=== PATIENT | male | born 1945 | race African-American/Black ===

== ENCOUNTER 2017-05-30 08:55 | Emergency (ER) | payer MEDICARE, MEDICAID ==
[~2017-05-30] VITALS: Ht 165.1 cm; Wt 69.0 kg
[2017-05-30 12:29] LABS: BASOPHILS % 0.6 % (0.0-2.0); EOSINOPHILS % 1.3 % (0.0-5.0); HEMATOCRIT. 37.2 % (42.0-52.0); HEMOGLOBIN. 12.2 g/dL (14.0-18.0); LYMPHOCYTES % 22.6 % (20.0-50.0); MEAN CORPUSCULAR HEMOGLOBIN 25.8 pg (28.0-32.0); MEAN CORPUSCULAR VOLUME 78.8 fL (80.0-94.0); MEAN PLATELET VOLUME 7.8 fl (7.4-10.4); MONOCYTES % 13.7 % (2.0-8.0); NEUTROPHILS % 61.8 % (40.0-76.0); PLATELET 335 x1000/uL (130-400); RED BLOOD CELL COUNT 4.72 mill/uL (4.7-6.1); RED CELL DISTRIBUTION WIDTH 15.1 % (11.6-14.6)
[2017-05-30 12:33] LABS: PROTHROMBIN TIME 10.8 sec (9.4-11.6)
[2017-05-30 12:39] LABS: CHLORIDE 103 mEq/L (98-107)
[2017-05-30 14:32] VITALS: BP 126/73
== END 2017-05-30 14:30 | disposition home or self-care (01) ==
LOC: ER 08:55
DX: R14.0 Abdominal distension (gaseous) (principal); R10.9 Unspecified abdominal pain; E78.00 Pure hypercholesterolemia, unspecified
CPT/HCPCS: 36415; 74021; 80053; 83690; 85025; 85610; 99285

== ENCOUNTER 2018-03-30 16:27 | Emergency (ER) | payer MEDICARE, MEDICAID ==
[~2018-03-30] VITALS: Ht 165.1 cm; Wt 70.0 kg
[2018-03-30] MEDS ORDERED: GABA-529 MT (16:46)
[2018-03-30] MEDS ORDERED: LISI-186 MT (16:46)
[2018-03-30] MEDS ORDERED: SIMV40TA5 MT (16:46)
[2018-03-30] MEDS ORDERED: FERR325T6 MT (16:46)
[2018-03-30] MEDS ORDERED: ASPI-1159 MT (16:46)
[2018-03-30] MEDS ORDERED: METF-414 MT (16:46)
[2018-03-30 19:24] VITALS: BP 120/66
== END 2018-03-31 01:00 | disposition home or self-care (01) ==
LOC: ER 16:45
DX: M25.511 Pain in right shoulder (principal); M25.562 Pain in left knee; E11.9 Type 2 diabetes mellitus without complications; Z98.890 Other specified postprocedural states; Z79.82 Long term (current) use of aspirin; Z79.899 Other long term (current) drug therapy
CPT/HCPCS: 73030; 99283

== ENCOUNTER 2018-10-16 00:05 | Emergency (ER) | payer MEDICARE, MEDICAID ==
[~2018-10-16] VITALS: Ht 165.1 cm; Wt 57.0 kg
[~2018-10-16 00:05] MED LIST: ASPI-1393 MT; FERR325T6 MT; GABA-529 MT; LISI-186 MT; METF-414 MT; SIMV40TA5 MT
[2018-10-16] MEDS ORDERED: BACITRACIN ZINC OINT UDPKT TOP ONE (05:15)
[2018-10-16] MEDS ORDERED: TETANUS, DIPHTHERIA, PERTUSSIS VAC/PF 0.5ML (>7YR OLD) IM ONE (05:15)
[2018-10-16] MEDS ORDERED: LIDOCAINE HCL/PF 1% 10 MG/ML 5ML VIAL IJ ONE (05:15)
[2018-10-16] MEDS ORDERED: CEFAZOLIN 1000MG PREMIX 50 ML IV ONE (06:00)
[2018-10-16 06:59] VITALS: BP 138/74
== END 2018-10-16 06:59 | disposition home or self-care (01) ==
LOC: ER 00:05
DX: S62.525A Nondisplaced fracture of distal phalanx of left thumb, initial encounter for closed fracture (principal); S61.011A Laceration without foreign body of right thumb without damage to nail, initial encounter; E11.9 Type 2 diabetes mellitus without complications; I10 Essential (primary) hypertension; Z98.61 Coronary angioplasty status; Z79.82 Long term (current) use of aspirin; Z79.84 Long term (current) use of oral hypoglycemic drugs; W45.8XXA Other foreign body or object entering through skin, initial encounter; Y93.89 Activity, other specified; Y92.018 Other place in single-family (private) house as the place of occurrence of the external cause
CPT/HCPCS: 12001; 73140; 90471; 90715; 96365; 99283; J0690; J3490

== ENCOUNTER 2018-10-22 19:41 | Emergency (ER) | payer MEDICARE, MEDICAID ==
[~2018-10-22] VITALS: Ht 165.1 cm; Wt 72.0 kg
[2018-10-22 21:00] VITALS: BP 147/86
== END 2018-10-22 22:27 | disposition home or self-care (01) ==
LOC: ER 19:41
DX: S61.012D Laceration without foreign body of left thumb without damage to nail, subsequent encounter (principal); E11.9 Type 2 diabetes mellitus without complications; I10 Essential (primary) hypertension; Z79.899 Other long term (current) drug therapy; Z79.82 Long term (current) use of aspirin; Z98.61 Coronary angioplasty status; X58.XXXD Exposure to other specified factors, subsequent encounter
CPT/HCPCS: 99283

== ENCOUNTER 2019-08-27 00:11 | Emergency (ER) | payer MEDICARE, MEDICAID ==
[~2019-08-27] VITALS: Ht 165.1 cm; Wt 75.0 kg
[~2019-08-27 00:11] MED LIST changes: -ASPI-1393 MT; +ASPI-1497 MT; +SIMV-46 MT; -SIMV40TA5 MT
[2019-08-27 00:17] VITALS: BP 150/79
== END 2019-08-27 01:06 | disposition home or self-care (01) ==
LOC: ER 00:11
DX: R06.02 Shortness of breath (principal); I10 Essential (primary) hypertension; E11.9 Type 2 diabetes mellitus without complications; Z98.61 Coronary angioplasty status; Z79.84 Long term (current) use of oral hypoglycemic drugs; Z79.82 Long term (current) use of aspirin
CPT/HCPCS: 99281

== ENCOUNTER 2021-03-20 21:41 | Emergency (ER) | payer MEDICARE, MEDICAID ==
[~2021-03-20] VITALS: Ht 165.1 cm; Wt 70.3 kg
[2021-03-21] MEDS ORDERED: AMLO5TAB88 MT (02:29)
[2021-03-21] MEDS ORDERED: AMLODIPINE 5MG TABLET PO ONE (02:30)
[2021-03-21 03:30] VITALS: BP 132/74
== END 2021-03-21 03:50 | disposition home or self-care (01) ==
LOC: ER 21:41
DX: I10 Essential (primary) hypertension (principal); E78.00 Pure hypercholesterolemia, unspecified; K21.9 Gastro-esophageal reflux disease without esophagitis; E11.9 Type 2 diabetes mellitus without complications; Z79.82 Long term (current) use of aspirin; Z79.84 Long term (current) use of oral hypoglycemic drugs
CPT/HCPCS: 93005; 99283

== ENCOUNTER 2021-04-24 16:32 | Emergency (ER) | payer MEDICARE, MEDICAID ==
[~2021-04-24] VITALS: Ht 165.1 cm; Wt 70.0 kg
[~2021-04-24 16:32] MED LIST changes: +AMLO5TAB88 MT
[2021-04-24 16:43] VITALS: BP 146/79
== END 2021-04-24 19:22 | disposition home or self-care (01) ==
LOC: ER 16:32
DX: U07.1 COVID-19 (principal); E11.9 Type 2 diabetes mellitus without complications; I10 Essential (primary) hypertension; E78.00 Pure hypercholesterolemia, unspecified; Z20.822 Contact with and (suspected) exposure to COVID-19
CPT/HCPCS: 87426; 99283

== ENCOUNTER 2021-04-30 12:18 | Emergency (ER) | payer MEDICARE, MEDICAID ==
[~2021-04-30] VITALS: Ht 165.1 cm; Wt 75.0 kg
[2021-04-30] MEDS ORDERED: ASPIRIN 81MG TABLET PO ONE (12:45)
[2021-04-30 14:13] LABS: BASOPHILS % 0.8 % (0.0-2.0); EOSINOPHILS % 0.8 % (0.0-5.0); HEMOGLOBIN. 12.3 g/dL (14.0-18.0); LYMPHOCYTES % 16.9 % (20.0-50.0); MEAN CORPUSCULAR HEMOGLOBIN 26.1 pg (28.0-32.0); MEAN CORPUSCULAR VOLUME 78.6 fL (80.0-94.0); MEAN PLATELET VOLUME 8.5 fl (7.4-10.4); MONOCYTES % 10.5 % (2.0-8.0); PLATELET 315 x1000/uL (130-400); RED CELL DISTRIBUTION WIDTH 14.3 % (11.6-14.6)
[2021-04-30 14:16] LABS: CHLORIDE 105 mEq/L (98-107)
[2021-04-30 17:48] VITALS: BP 123/80
== END 2021-04-30 17:49 | disposition home or self-care (01) ==
LOC: ER 12:18
DX: U07.1 COVID-19 (principal); R07.89 Other chest pain; E11.9 Type 2 diabetes mellitus without complications; I25.10 Atherosclerotic heart disease of native coronary artery without angina pectoris; I10 Essential (primary) hypertension; E78.00 Pure hypercholesterolemia, unspecified; Z95.1 Presence of aortocoronary bypass graft; Z79.84 Long term (current) use of oral hypoglycemic drugs; Z79.82 Long term (current) use of aspirin
CPT/HCPCS: 36415; 71045; 80053; 83690; 83880; 84484; 85025; 99284; C9803; U0003; U0005

== ENCOUNTER 2022-05-24 13:43 | Emergency (ER) | payer MEDICARE, MEDICAID ==
[~2022-05-24] VITALS: Ht 165.1 cm; Wt 71.0 kg
[2022-05-24 13:51] VITALS: BP 152/81
[2022-05-24] MEDS ORDERED: MAGNESIUM/ALUMINUM HYDROXIDE/SIMETHICONE 30ML UDC PO STA (14:55)
[2022-05-24] MEDS ORDERED: ONDANSETRON 4MG ODT PO STA (14:55)
[2022-05-24] MEDS ORDERED: VISCOUS LIDOCAINE 2% 15 ML UDC PO STA (14:55)
[2022-05-24 15:13] LABS: BASOPHILS % 0.8 % (0.0-2.0); HEMATOCRIT. 39.6 % (42.0-52.0); HEMOGLOBIN. 12.8 g/dL (14.0-18.0); LYMPHOCYTES % 22.4 % (20.0-50.0); MEAN CORPUSCULAR HEMOGLOBIN 25.9 pg (28.0-32.0); MEAN PLATELET VOLUME 8.6 fl (7.4-10.4); MONOCYTES % 8.2 % (2.0-8.0); NEUTROPHILS % 67.6 % (40.0-76.0); PLATELET 338 x1000/uL (130-400); RED BLOOD CELL COUNT 4.95 mill/uL (4.7-6.1); RED CELL DISTRIBUTION WIDTH 15.1 % (11.6-14.6)
[2022-05-24 15:20] LABS: PROTHROMBIN TIME 11.2 sec (9.6-11.0)
[2022-05-24 15:23] LABS: CHLORIDE 108 mEq/L (98-107)
[2022-05-24] MEDS ORDERED: MAGNESIUM/ALUMINUM HYDROXIDE/SIMETHICONE 30ML UDC PO SCH (17:30)
[2022-05-24] MEDS ORDERED: ONDANSETRON 4MG ODT PO SCH (17:30)
[2022-05-24] MEDS ORDERED: VISCOUS LIDOCAINE 2% 15 ML UDC PO SCH (17:30)
== END 2022-05-24 19:14 | disposition home or self-care (01) ==
LOC: ER 13:43
DX: K52.9 Noninfective gastroenteritis and colitis, unspecified (principal); R07.89 Other chest pain; E11.9 Type 2 diabetes mellitus without complications; I10 Essential (primary) hypertension; E78.00 Pure hypercholesterolemia, unspecified; I25.10 Atherosclerotic heart disease of native coronary artery without angina pectoris; Z79.82 Long term (current) use of aspirin; Z79.84 Long term (current) use of oral hypoglycemic drugs; Z95.1 Presence of aortocoronary bypass graft
CPT/HCPCS: 36415; 71045; 80053; 83690; 84484; 85025; 85610; 93005; 99285; Q0162

== ENCOUNTER 2022-12-05 05:36 | Emergency (ER) | payer MEDICARE, MEDICAID ==
[~2022-12-05] VITALS: Ht 165.1 cm; Wt 68.1 kg
[~2022-12-05 05:36] MED LIST changes: +AMOX1TAB16 MT; +AZIT250T12 MT
[2022-12-05 05:39] VITALS: BP 143/87; RESP 14; TEMP 98.2; O2SAT 96
[2022-12-05 05:40] VITALS: PULSE 102
== END 2022-12-05 07:50 | disposition left against medical advice (07) ==
LOC: ER 05:43
DX: Z53.21 Procedure and treatment not carried out due to patient leaving prior to being seen by health care provider (principal)
CPT/HCPCS: 99281

== ENCOUNTER 2022-12-10 04:11 | Emergency (ER) | payer MEDICARE, MEDICAID ==
[~2022-12-10] VITALS: Ht 165.1 cm; Wt 72.0 kg
[2022-12-10 04:34] VITALS: O2SAT 97
[2022-12-10 04:56] LABS: BASOPHILS % 0.8 % (0.0-2.0); EOSINOPHILS % 1.6 % (0.0-5.0); HEMATOCRIT. 39.7 % (42.0-52.0); LYMPHOCYTES % 30.1 % (20.0-50.0); MEAN CORPUSCULAR HEMOGLOBIN 26.2 pg (28.0-32.0); MEAN CORPUSCULAR HGB CONC 32.7 g/dL (31.0-37.0); MEAN CORPUSCULAR VOLUME 80.2 fL (80.0-94.0); MEAN PLATELET VOLUME 8.3 fl (7.4-10.4); MONOCYTES % 9.5 % (2.0-8.0); PLATELET 277 x1000/uL (130-400); RED BLOOD CELL COUNT 4.96 mill/uL (4.7-6.1); RED CELL DISTRIBUTION WIDTH 15.2 % (11.6-14.6); WHITE BLOOD COUNT 6.5 x1000/uL (4.5-11.0)
[2022-12-10 05:04] LABS: CHLORIDE 106 mEq/L (98-107); INDEX HEMOLYSI 1 (1-3); INDEX ICTERIC 1 (1-4); INDEX LIPEMIC 1 (1-3); POTASSIUM 4.6 mEq/L (3.5-5.1); SODIUM 134 mEq/L (136-145)
[2022-12-10 05:08] LABS: CLARITY URINE CLEAR (CLEAR); COLOR URINE YELLOW (YELLOW); GLUCOSE URINE NEGATIVE (NEGATIVE); KETONES URINE NEGATIVE (NEGATIVE); LEUKOCYTE ESTERASE URINE NEGATIVE (NEGATIVE); NITRITE URINE NEGATIVE (NEGATIVE); OCCULT BLOOD URINE NEGATIVE (NEGATIVE); PH URINE 5.5 (4.5-8.0); PROTEIN URINE TRACE (NEGATIVE); SPECIFIC GRAVITY URINE 1.011 (1.005-1.030); UROBILINOGEN URINE 0.2 E.U./dL (0.2-1.0)
[2022-12-10 05:08] LABS: PARTIAL THROMBOPLASTIN TIME 28.2 sec (23.4-31.0); PROTHROMBIN TIME 11.2 sec (9.6-11.0)
[2022-12-10 05:13] LABS: ALANINE AMINOTRANSFERASE 22 IU/L (13-61); ALBUMIN 3.8 g/dL (3.4-5.0); ASPARTATE AMINOTRANSFERASE 20 IU/L (15-37); BILIRUBIN TOTAL 0.3 mg/dL (0.1-1.0); CALCIUM 8.8 mg/dL (8.5-10.1); CARBON DIOXIDE 26 mEq/L (21-32); CREATININE 1.1 mg/dL (0.6-1.3); GLUCOSE 136 mg/dL (70-105); PROTEIN TOTAL 7.7 g/dL (6.0-8.3); TROPONIN I HIGH SENSITIVITY 8 ng/L (<78); UREA NITROGEN BLOOD 12 mg/dL (7-21)
[2022-12-10 05:28] LABS: BACTERIA URINE TRACE; RBC URINE NONE SEEN /hpf (0-2); SQUAMOUS EPITHELIAL CELL URINE FEW /lpf (RARE/1+); WBC URINE NONE SEEN /hpf (0-2)
[2022-12-10] MEDS ORDERED: MAGNESIUM/ALUMINUM HYDROXIDE/SIMETHICONE 30ML UDC PO STA (08:34)
[2022-12-10] MEDS ORDERED: FAMOTIDINE 20MG TABLET PO ONE (08:45)
[2022-12-10 12:16] LABS: TROPONIN I HIGH SENSITIVITY 16 ng/L (<78)
[2022-12-10 13:10] VITALS: BP 145/75; PULSE 76; RESP 18; TEMP 97.7
== END 2022-12-10 13:12 | disposition home or self-care (01) ==
LOC: ER 04:11
DX: R07.89 Other chest pain (principal); E78.00 Pure hypercholesterolemia, unspecified; I10 Essential (primary) hypertension; Z79.899 Other long term (current) drug therapy
CPT/HCPCS: 36415; 71045; 80053; 81003; 84484; 85025; 93005; 99285

== ENCOUNTER 2022-12-24 13:05 | Emergency (ER) | payer MEDICARE, MEDICAID ==
[~2022-12-24] VITALS: Ht 165.1 cm; Wt 68.0 kg
[2022-12-24 13:14] VITALS: O2SAT 98
[2022-12-24 13:18] VITALS: BP 128/73
[2022-12-24 14:52] LABS: BASOPHILS % 0.4 % (0.0-2.0); DIFFERENTIAL COMMENT 0; EOSINOPHILS % 1.9 % (0.0-5.0); HEMOGLOBIN. 12.2 g/dL (14.0-18.0); LYMPHOCYTES % 23.2 % (20.0-50.0); MEAN CORPUSCULAR HEMOGLOBIN 25.9 pg (28.0-32.0); MEAN CORPUSCULAR VOLUME 78.6 fL (80.0-94.0); MEAN PLATELET VOLUME 8.6 fl (7.4-10.4); MONOCYTES % 8.7 % (2.0-8.0); NEUTROPHILS % 65.8 % (40.0-76.0); PLATELET 287 x1000/uL (130-400); RED BLOOD CELL COUNT 4.71 mill/uL (4.7-6.1); RED CELL DISTRIBUTION WIDTH 15.1 % (11.6-14.6); WHITE BLOOD COUNT 6.5 x1000/uL (4.5-11.0)
[2022-12-24 15:23] LABS: CHLORIDE 107 mEq/L (98-107); INDEX HEMOLYSI 1 (1-3); INDEX ICTERIC 1 (1-4); INDEX LIPEMIC 1 (1-3); POTASSIUM 4.6 mEq/L (3.5-5.1); SODIUM 137 mEq/L (136-145)
[2022-12-24 15:35] LABS: ALANINE AMINOTRANSFERASE 26 IU/L (13-61); ALBUMIN 3.8 g/dL (3.4-5.0); ASPARTATE AMINOTRANSFERASE 22 IU/L (15-37); BILIRUBIN TOTAL 0.6 mg/dL (0.1-1.0); CALCIUM 8.9 mg/dL (8.5-10.1); CARBON DIOXIDE 28 mEq/L (21-32); CREATININE 1.1 mg/dL (0.6-1.3); GLUCOSE 105 mg/dL (70-105); PROTEIN TOTAL 7.6 g/dL (6.0-8.3); UREA NITROGEN BLOOD 19 mg/dL (7-21)
[2022-12-24 15:37] LABS: TROPONIN I HIGH SENSITIVITY 5 ng/L (<78)
[2022-12-24] MEDS ORDERED: MAGNESIUM/ALUMINUM HYDROXIDE/SIMETHICONE 30ML UDC PO ONE (17:45)
[2022-12-24] MEDS ORDERED: ONDANSETRON 4MG ODT PO ONE (17:45)
[2022-12-24 18:14] LABS: CLARITY URINE CLEAR (CLEAR); COLOR URINE YELLOW (YELLOW); GLUCOSE URINE NEGATIVE (NEGATIVE); KETONES URINE NEGATIVE (NEGATIVE); LEUKOCYTE ESTERASE URINE 1+ (NEGATIVE); NITRITE URINE NEGATIVE (NEGATIVE); OCCULT BLOOD URINE NEGATIVE (NEGATIVE); PH URINE 5.5 (4.5-8.0); PROTEIN URINE NEGATIVE (NEGATIVE); SPECIFIC GRAVITY URINE 1.026 (1.005-1.030); UROBILINOGEN URINE 0.2 E.U./dL (0.2-1.0)
[2022-12-24 18:30] LABS: TROPONIN I HIGH SENSITIVITY 6 ng/L (<78)
[2022-12-24 18:31] LABS: BACTERIA URINE TRACE; SQUAMOUS EPITHELIAL CELL URINE FEW /lpf (RARE/1+)
[2022-12-24 18:32] LABS: RBC URINE NONE SEEN /hpf (0-2)
[2022-12-24] MEDS ORDERED: CIPR-263 MT (19:13)
[2022-12-24] MEDS ORDERED: IBUP-2028 MT (19:13)
[2022-12-24] MEDS ORDERED: ONDANSETRON 4MG ODT PO NR (20:00)
[2022-12-24] MEDS: MAGNESIUM/ALUMINUM HYDROXIDE/SIMETHICONE 30ML UDC PO NR ×2 (20:27→20:28)
[2022-12-24 21:52] VITALS: PULSE 72; RESP 18; TEMP 98.2
== END 2022-12-24 21:53 | disposition home or self-care (01) ==
LOC: ER 13:36
DX: N39.0 Urinary tract infection, site not specified (principal); R10.9 Unspecified abdominal pain; R11.2 Nausea with vomiting, unspecified; E78.00 Pure hypercholesterolemia, unspecified; I10 Essential (primary) hypertension; Z79.899 Other long term (current) drug therapy
CPT/HCPCS: 99285; 71045; 80053; 81003; 83690; 85025; 84484; 36415; 93005; Q0162

== ENCOUNTER 2023-05-18 07:01 | Emergency (ER) | payer MEDICARE, MEDICAID ==
[~2023-05-18] VITALS: Ht 165.1 cm; Wt 69.8 kg
[~2023-05-18 07:01] MED LIST changes: +CIPR-263 MT; +IBUP-2028 MT
[2023-05-18 07:25] VITALS: BP 132/75; PULSE 69; RESP 16; TEMP 98.3; O2SAT 98
[2023-05-18] MEDS ORDERED: GUAI5LIQ13 PO (09:43)
== END 2023-05-18 09:51 | disposition home or self-care (01) ==
LOC: ER 07:01
DX: B34.9 Viral infection, unspecified (principal); I10 Essential (primary) hypertension; E78.00 Pure hypercholesterolemia, unspecified; Z79.82 Long term (current) use of aspirin
CPT/HCPCS: 71045; 99283

== ENCOUNTER 2023-06-27 10:36 | Emergency (ER) | payer MEDICARE, MEDICAID ==
[~2023-06-27] VITALS: Ht 165.1 cm; Wt 70.0 kg
[~2023-06-27 10:36] MED LIST changes: +GUAI5LIQ13 PO
[2023-06-27 10:40] VITALS: O2SAT 99
[2023-06-27] MEDS ORDERED: AMOX1TAB16 MT (11:41)
[2023-06-27] MEDS ORDERED: P20 PO (11:41)
[2023-06-27 12:08] VITALS: BP 144/97; PULSE 68; RESP 13; TEMP 98.2
== END 2023-06-27 12:10 | disposition home or self-care (01) ==
LOC: ER 10:36
DX: R05.9 Cough, unspecified (principal); J06.9 Acute upper respiratory infection, unspecified; E78.00 Pure hypercholesterolemia, unspecified; I10 Essential (primary) hypertension; Z79.899 Other long term (current) drug therapy
CPT/HCPCS: 71046; 99283

== ENCOUNTER 2023-07-15 20:14 | Emergency (ER) | payer MEDICARE, MEDICAID ==
[~2023-07-15] VITALS: Ht 165.1 cm; Wt 70.0 kg
[~2023-07-15 20:14] MED LIST changes: +P20 PO
[2023-07-15 20:46] VITALS: O2SAT 100
[2023-07-15 22:41] LABS: BASOPHILS % 0.7 % (0.0-2.0); DIFFERENTIAL COMMENT 0; EOSINOPHILS % 2.4 % (0.0-5.0); HEMATOCRIT. 35.7 % (42.0-52.0); HEMOGLOBIN. 11.7 g/dL (14.0-18.0); LYMPHOCYTES % 32.5 % (20.0-50.0); MEAN CORPUSCULAR HGB CONC 32.8 g/dL (31.0-37.0); MEAN CORPUSCULAR VOLUME 79.2 fL (80.0-94.0); MEAN PLATELET VOLUME 8.7 fl (7.4-10.4); MONOCYTES % 10.8 % (2.0-8.0); NEUTROPHILS % 53.6 % (40.0-76.0); PLATELET 258 x1000/uL (130-400); RED BLOOD CELL COUNT 4.51 mill/uL (4.7-6.1); WHITE BLOOD COUNT 6.1 x1000/uL (4.5-11.0)
[2023-07-15 22:53] LABS: ALANINE AMINOTRANSFERASE 13 IU/L (10-49); ALBUMIN 4.1 g/dL (3.2-4.8); ASPARTATE AMINOTRANSFERASE 21 IU/L (<34); BILIRUBIN TOTAL 0.5 mg/dL (0.1-1.0); CALCIUM 8.9 mg/dL (8.7-10.4); CARBON DIOXIDE 26 mEq/L (21-32); CHLORIDE 105 mEq/L (98-107); GLUCOSE 123 mg/dL (70-105); POTASSIUM 4.7 mEq/L (3.5-5.1); PROTEIN TOTAL 7.4 g/dL (6.0-8.3); SODIUM 135 mEq/L (136-145); TROPONIN I HIGH SENSITIVITY 5 ng/L (3.0-53); UREA NITROGEN BLOOD 18 mg/dL (9-23)
[2023-07-15] MEDS: MAGNESIUM/ALUMINUM HYDROXIDE/SIMETHICONE 30ML UDC PO ONE (22:57)
[2023-07-15] MEDS ORDERED: PANT20TA17 MT (23:21)
[2023-07-16 00:03] VITALS: BP 141/59; PULSE 68; RESP 19; TEMP 98.1
== END 2023-07-16 00:06 | disposition home or self-care (01) ==
LOC: ER 20:14
DX: K21.9 Gastro-esophageal reflux disease without esophagitis (principal); E11.9 Type 2 diabetes mellitus without complications; E78.00 Pure hypercholesterolemia, unspecified; I10 Essential (primary) hypertension; Z98.890 Other specified postprocedural states
CPT/HCPCS: 36415; 71045; 80053; 84484; 85025; 93005; 99285

== ENCOUNTER 2023-09-04 07:13 | Emergency (ER) | payer MEDICARE, MEDICAID ==
[~2023-09-04] VITALS: Ht 165.1 cm; Wt 70.0 kg
[~2023-09-04 07:13] MED LIST changes: +PANT20TA17 MT
[2023-09-04 07:42] VITALS: BP 145/78; PULSE 84; RESP 18; TEMP 98.7; O2SAT 100
== END 2023-09-04 09:34 | disposition home or self-care (01) ==
LOC: ER 07:13
DX: B34.9 Viral infection, unspecified (principal); E11.9 Type 2 diabetes mellitus without complications; K21.9 Gastro-esophageal reflux disease without esophagitis; E78.00 Pure hypercholesterolemia, unspecified; I10 Essential (primary) hypertension; Z98.890 Other specified postprocedural states
CPT/HCPCS: 71046; 99283

== ENCOUNTER 2023-11-26 01:27 | Emergency (ER) | payer MEDICARE, MEDICAID ==
[~2023-11-26] VITALS: Ht 165.1 cm; Wt 66.0 kg
[2023-11-26 01:40] VITALS: O2SAT 98
[2023-11-26 03:27] LABS: BASOPHILS % 0.5 % (0.0-2.0); EOSINOPHILS % 2.4 % (0.0-5.0); HEMATOCRIT. 36.9 % (42.0-52.0); LYMPHOCYTES % 25.3 % (20.0-50.0); MEAN CORPUSCULAR HEMOGLOBIN 26.3 pg (28.0-32.0); MEAN CORPUSCULAR HGB CONC 32.5 g/dL (31.0-37.0); MEAN PLATELET VOLUME 8.1 fl (7.4-10.4); MONOCYTES % 8.6 % (2.0-8.0); NEUTROPHILS % 63.2 % (40.0-76.0); PLATELET 290 x1000/uL (130-400); RED BLOOD CELL COUNT 4.55 mill/uL (4.7-6.1); RED CELL DISTRIBUTION WIDTH 15.1 % (11.6-14.6); WHITE BLOOD COUNT 5.4 x1000/uL (4.5-11.0)
[2023-11-26 03:39] LABS: CARBON DIOXIDE 28 mEq/L (21-32); CHLORIDE 103 mEq/L (98-107); POTASSIUM 4.6 mEq/L (3.5-5.1); SODIUM 135 mEq/L (136-145)
[2023-11-26 03:40] LABS: CALCIUM 9.2 mg/dL (8.7-10.4)
[2023-11-26 03:44] LABS: CREATININE 1.2 mg/dL (0.6-1.3); GLUCOSE 128 mg/dL (70-105)
[2023-11-26 03:45] LABS: UREA NITROGEN BLOOD 18 mg/dL (9-23)
[2023-11-26 03:47] LABS: TROPONIN I HIGH SENSITIVITY 4 ng/L (3.0-53)
[2023-11-26 03:49] LABS: ETHANOL BLOOD < 10 mg/dL (<10)
[2023-11-26 05:18] VITALS: BP 130/72; PULSE 66; RESP 18; TEMP 97.8
== END 2023-11-26 05:20 | disposition home or self-care (01) ==
LOC: ER 01:27
DX: I10 Essential (primary) hypertension (principal); R42 Dizziness and giddiness; E11.9 Type 2 diabetes mellitus without complications; K21.9 Gastro-esophageal reflux disease without esophagitis; E78.00 Pure hypercholesterolemia, unspecified; Z79.899 Other long term (current) drug therapy
CPT/HCPCS: 36415; 71045; 80048; 80320; 83880; 84484; 85025; 93005; 99285; G0480

== ENCOUNTER 2024-02-07 06:17 | Emergency (ER) | payer MEDICARE, MEDICAID ==
[~2024-02-07] VITALS: Ht 167.6 cm; Wt 87.0 kg
[2024-02-07 06:48] VITALS: O2SAT 97
[2024-02-07 06:54] VITALS: BP 127/69; PULSE 98; RESP 18; TEMP 98.3; O2SAT 100
[2024-02-07 07:22] LABS: BASOPHILS % 0.4 % (0.0-2.0); DIFFERENTIAL COMMENT 0; EOSINOPHILS % 2.1 % (0.0-5.0); HEMOGLOBIN. 11.5 g/dL (14.0-18.0); LYMPHOCYTES % 19.9 % (20.0-50.0); MEAN CORPUSCULAR HEMOGLOBIN 26.2 pg (28.0-32.0); MEAN CORPUSCULAR HGB CONC 32.8 g/dL (31.0-37.0); MEAN CORPUSCULAR VOLUME 79.8 fL (80.0-94.0); MEAN PLATELET VOLUME 8.4 fl (7.4-10.4); MONOCYTES % 7.7 % (2.0-8.0); NEUTROPHILS % 69.9 % (40.0-76.0); PLATELET 244 x1000/uL (130-400); RED BLOOD CELL COUNT 4.38 mill/uL (4.7-6.1); WHITE BLOOD COUNT 4.7 x1000/uL (4.5-11.0)
[2024-02-07 07:29] LABS: CHLORIDE 106 mEq/L (98-107); POTASSIUM 4.4 mEq/L (3.5-5.1); SODIUM 137 mEq/L (136-145)
[2024-02-07 07:30] LABS: CARBON DIOXIDE 27 mEq/L (21-32)
[2024-02-07 07:31] LABS: CALCIUM 9.2 mg/dL (8.7-10.4)
[2024-02-07 07:35] LABS: GLUCOSE 159 mg/dL (70-105)
[2024-02-07 07:36] LABS: TROPONIN I HIGH SENSITIVITY 5 ng/L (3.0-53); UREA NITROGEN BLOOD 15 mg/dL (9-23)
[2024-02-07 07:37] LABS: ETHANOL BLOOD < 10 mg/dL (<10)
[2024-02-07 07:39] LABS: CLARITY URINE CLEAR (CLEAR); COLOR URINE YELLOW (YELLOW); GLUCOSE URINE NEGATIVE (NEGATIVE); KETONES URINE NEGATIVE (NEGATIVE); LEUKOCYTE ESTERASE URINE NEGATIVE (NEGATIVE); NITRITE URINE NEGATIVE (NEGATIVE); OCCULT BLOOD URINE NEGATIVE (NEGATIVE); PROTEIN URINE TRACE (NEGATIVE); SPECIFIC GRAVITY URINE 1.021 (1.005-1.030)
[2024-02-07 07:51] LABS: *AMPHETAMINES SCREEN URINE NEGATIVE (NEGATIVE)
[2024-02-07 07:52] LABS: *BARBITURATES SCREEN URINE NEGATIVE (NEGATIVE); *BENZODIAZEPINES SCREEN URINE NEGATIVE (NEGATIVE); *COCAINE SCREEN URINE NEGATIVE (NEGATIVE); CANNABINOID URINE SCREEN NEGATIVE (NEGATIVE); ECSTASY MDMA SCREEN URINE NEGATIVE (NEGATIVE); METHADONE URINE SCREEN NEGATIVE (NEGATIVE); OPIATES URINE SCREEN NEGATIVE (NEGATIVE); PHENCYCLIDINE URINE SCREEN NEGATIVE (NEGATIVE)
[2024-02-07 07:58] LABS: BACTERIA URINE 1+; RBC URINE NONE SEEN /hpf (0-2); SQUAMOUS EPITHELIAL CELL URINE NONE SEEN /lpf (RARE/1+); YEAST URINE NONE SEEN
== END 2024-02-07 09:39 | disposition home or self-care (01) ==
LOC: ER 06:17
DX: R07.89 Other chest pain (principal); E11.9 Type 2 diabetes mellitus without complications; E78.00 Pure hypercholesterolemia, unspecified; I10 Essential (primary) hypertension; Z79.899 Other long term (current) drug therapy; Z79.82 Long term (current) use of aspirin; Z79.52 Long term (current) use of systemic steroids
CPT/HCPCS: 36415; 71045; 80048; 80305; 80320; 81003; 83880; 84484; 85025; 93005; 99285; G0480

== ENCOUNTER 2024-06-16 08:55 | Emergency (ER) | payer MEDICARE, MEDICAID ==
[~2024-06-16] VITALS: Ht 165.1 cm; Wt 70.0 kg
[~2024-06-16 08:55] MED LIST changes: -GUAI5LIQ13 PO; +GUAI5SYR PO
[2024-06-16 08:57] VITALS: O2SAT 100
[2024-06-16 09:02] VITALS: BP 170/104; PULSE 67; RESP 18; TEMP 36.9; O2SAT 98
[2024-06-16 09:23] LABS: BASOPHILS % 0.4 % (0.0-2.0); DIFFERENTIAL COMMENT 0; EOSINOPHILS % 0.6 % (0.0-5.0); HEMATOCRIT. 35.9 % (42.0-52.0); HEMOGLOBIN. 11.8 g/dL (14.0-18.0); LYMPHOCYTES % 20.4 % (20.0-50.0); MEAN CORPUSCULAR HEMOGLOBIN 26.2 pg (28.0-32.0); MEAN CORPUSCULAR HGB CONC 32.8 g/dL (31.0-37.0); MEAN CORPUSCULAR VOLUME 79.8 fL (80.0-94.0); MEAN PLATELET VOLUME 8.6 fl (7.4-10.4); MONOCYTES % 9.4 % (2.0-8.0); NEUTROPHILS % 69.2 % (40.0-76.0); PLATELET 315 x1000/uL (130-400); RED CELL DISTRIBUTION WIDTH 14.8 % (11.6-14.6); WHITE BLOOD COUNT 6.2 x1000/uL (4.5-11.0)
[2024-06-16] MEDS: FAMOTIDINE 20MG TABLET PO ONE (09:36)
[2024-06-16] MEDS: MAGNESIUM/ALUMINUM HYDROXIDE/SIMETHICONE 30ML UDC PO ONE (09:36)
[2024-06-16 09:37] LABS: CHLORIDE 105 mEq/L (98-107); POTASSIUM 4.1 mEq/L (3.5-5.1); SODIUM 139 mEq/L (136-145)
[2024-06-16 09:38] LABS: CARBON DIOXIDE 30 mEq/L (21-32)
[2024-06-16 09:39] LABS: CALCIUM 9.1 mg/dL (8.7-10.4)
[2024-06-16 09:43] LABS: GLUCOSE 133 mg/dL (70-105); UREA NITROGEN BLOOD 15 mg/dL (9-23)
[2024-06-16 10:24] LABS: ALANINE AMINOTRANSFERASE 15 IU/L (10-49); ASPARTATE AMINOTRANSFERASE 23 IU/L (<34); BILIRUBIN DIRECT 0.1 mg/dL (<=3.0); BILIRUBIN TOTAL 0.5 mg/dL (0.1-1.0); PROTEIN TOTAL 6.8 g/dL (6.0-8.3)
[2024-06-16] MEDS ORDERED: FAMO20TA8 MT (12:02)
== END 2024-06-16 12:07 | disposition home or self-care (01) ==
LOC: ER 08:55
DX: R10.84 Generalized abdominal pain (principal); E11.9 Type 2 diabetes mellitus without complications; E78.00 Pure hypercholesterolemia, unspecified; I10 Essential (primary) hypertension; K21.9 Gastro-esophageal reflux disease without esophagitis; Z79.52 Long term (current) use of systemic steroids; Z79.82 Long term (current) use of aspirin; Z79.84 Long term (current) use of oral hypoglycemic drugs; Z79.899 Other long term (current) drug therapy
CPT/HCPCS: 36415; 80048; 80076; 85025; 99283

== ENCOUNTER 2024-06-17 09:04 | Emergency (ER) | payer MEDICARE, MEDICAID ==
[~2024-06-17] VITALS: Ht 167.6 cm; Wt 60.0 kg
[~2024-06-17 09:04] MED LIST changes: +FAMO20TA8 MT
[2024-06-17 09:16] VITALS: O2SAT 100
[2024-06-17 10:00] LABS: BASOPHILS % 0.4 % (0.0-2.0); DIFFERENTIAL COMMENT 0; EOSINOPHILS % 0.7 % (0.0-5.0); HEMATOCRIT. 37.7 % (42.0-52.0); HEMOGLOBIN. 12.2 g/dL (14.0-18.0); MEAN CORPUSCULAR HEMOGLOBIN 25.5 pg (28.0-32.0); MEAN CORPUSCULAR HGB CONC 32.4 g/dL (31.0-37.0); MEAN CORPUSCULAR VOLUME 78.7 fL (80.0-94.0); MEAN PLATELET VOLUME 8.8 fl (7.4-10.4); MONOCYTES % 8.7 % (2.0-8.0); NEUTROPHILS % 67.2 % (40.0-76.0); PLATELET 321 x1000/uL (130-400); RED BLOOD CELL COUNT 4.79 mill/uL (4.7-6.1); RED CELL DISTRIBUTION WIDTH 15.1 % (11.6-14.6); WHITE BLOOD COUNT 7.8 x1000/uL (4.5-11.0)
[2024-06-17 10:11] LABS: CHLORIDE 102 mEq/L (98-107); POTASSIUM 3.6 mEq/L (3.5-5.1); SODIUM 138 mEq/L (136-145)
[2024-06-17 10:11] LABS: CLARITY URINE CLEAR (CLEAR); COLOR URINE YELLOW (YELLOW); GLUCOSE URINE NEGATIVE (NEGATIVE); KETONES URINE NEGATIVE (NEGATIVE); LEUKOCYTE ESTERASE URINE 2+ (NEGATIVE); NITRITE URINE NEGATIVE (NEGATIVE); OCCULT BLOOD URINE TRACE (NEGATIVE); PH URINE 6.5 (4.5-8.0); PROTEIN URINE 1+ (NEGATIVE); SPECIFIC GRAVITY URINE 1.012 (1.005-1.030); UROBILINOGEN URINE 0.2 E.U./dL (0.2-1.0)
[2024-06-17 10:13] LABS: CARBON DIOXIDE 27 mEq/L (21-32)
[2024-06-17 10:14] LABS: CALCIUM 9.4 mg/dL (8.7-10.4)
[2024-06-17] MEDS: LABETALOL 5MG/ML 4ML INJ IV ONE (10:15)
[2024-06-17 10:18] LABS: CREATININE 1.1 mg/dL (0.6-1.3); GLUCOSE 164 mg/dL (70-105)
[2024-06-17 10:19] LABS: UREA NITROGEN BLOOD 17 mg/dL (9-23)
[2024-06-17 10:20] LABS: ALANINE AMINOTRANSFERASE 15 IU/L (10-49); ALBUMIN 4.2 g/dL (3.2-4.8); ASPARTATE AMINOTRANSFERASE 23 IU/L (<34)
[2024-06-17 10:21] LABS: BILIRUBIN DIRECT 0.1 mg/dL (<=3.0); BILIRUBIN TOTAL 0.5 mg/dL (0.1-1.0); PROTEIN TOTAL 7.1 g/dL (6.0-8.3)
[2024-06-17 10:28] LABS: BACTERIA URINE FEW; RBC URINE NONE SEEN /hpf (0-2); SQUAMOUS EPITHELIAL CELL URINE NONE SEEN /lpf (RARE/1+); YEAST URINE NONE SEEN
[2024-06-17] MEDS: ASPIRIN 325MG EC TABLET PO ONE (10:36)
[2024-06-17] MEDS: ONDANSETRON HCL 4MG/2ML INJ IV ONE (10:36)
[2024-06-17 10:59] LABS: TROPONIN I HIGH SENSITIVITY 4 ng/L (3.0-53)
[2024-06-17 13:50] VITALS: BP 125/63; PULSE 62; RESP 12; TEMP 36.7; O2SAT 98
== END 2024-06-17 14:19 | disposition home or self-care (01) ==
LOC: ER 09:18 → CANBEDREQ 13:59 → ER 14:19
DX: I48.91 Unspecified atrial fibrillation (principal); I10 Essential (primary) hypertension; E11.9 Type 2 diabetes mellitus without complications; E78.00 Pure hypercholesterolemia, unspecified; K21.9 Gastro-esophageal reflux disease without esophagitis; Z79.52 Long term (current) use of systemic steroids; Z79.82 Long term (current) use of aspirin; Z79.84 Long term (current) use of oral hypoglycemic drugs; Z79.899 Other long term (current) drug therapy
CPT/HCPCS: 99285; 74176; 96374; 71045; 80076; 80048; 81003; 83880; 83690; 85025; 84484; 36415; 93005; J3490; J2405; A4606

== ENCOUNTER 2024-07-01 05:20 | Emergency (ER) | payer MEDICARE, MEDICAID ==
[~2024-07-01] VITALS: Ht 172.7 cm; Wt 72.0 kg
[~2024-07-01 05:20] MED LIST changes: -AMOX1TAB16 MT; -AZIT250T12 MT; -CIPR-263 MT; +CLOP-31 PO; -FAMO20TA8 MT; -GUAI5SYR PO; -IBUP-2028 MT; +LIP40 PO; +METO25TA6 PO; -P20 PO; -SIMV-46 MT; +SUCR1TAB PO
[2024-07-01 06:31] VITALS: O2SAT 99
[2024-07-01 07:46] VITALS: BP 119/59; PULSE 89; RESP 16; TEMP 36.7; O2SAT 98
[2024-07-01 07:56] LABS: BASOPHILS % 0.2 % (0.0-2.0); DIFFERENTIAL COMMENT 0; EOSINOPHILS % 0.6 % (0.0-5.0); HEMATOCRIT. 34.6 % (42.0-52.0); HEMOGLOBIN. 11.2 g/dL (14.0-18.0); LYMPHOCYTES % 16.7 % (20.0-50.0); MEAN CORPUSCULAR HEMOGLOBIN 25.7 pg (28.0-32.0); MEAN CORPUSCULAR HGB CONC 32.3 g/dL (31.0-37.0); MEAN CORPUSCULAR VOLUME 79.6 fL (80.0-94.0); MEAN PLATELET VOLUME 8.4 fl (7.4-10.4); MONOCYTES % 8.9 % (2.0-8.0); NEUTROPHILS % 73.6 % (40.0-76.0); PLATELET 265 x1000/uL (130-400); RED BLOOD CELL COUNT 4.34 mill/uL (4.7-6.1); RED CELL DISTRIBUTION WIDTH 15.3 % (11.6-14.6); WHITE BLOOD COUNT 5.4 x1000/uL (4.5-11.0)
[2024-07-01 08:00] VITALS: TEMP 98.1
[2024-07-01] MEDS: FAMOTIDINE 20MG TABLET PO ONE (08:00)
[2024-07-01] MEDS: MAGNESIUM/ALUMINUM HYDROXIDE/SIMETHICONE 30ML UDC PO ONE (08:00)
[2024-07-01] MEDS: ACETAMINOPHEN 325MG TABLET PO ONE (08:00)
[2024-07-01 08:03] LABS: CHLORIDE 101 mEq/L (98-107); POTASSIUM 4.5 mEq/L (3.5-5.1); SODIUM 136 mEq/L (136-145)
[2024-07-01 08:04] LABS: CALCIUM 9.3 mg/dL (8.7-10.4); CARBON DIOXIDE 29 mEq/L (21-32)
[2024-07-01 08:09] LABS: GLUCOSE 125 mg/dL (70-105); UREA NITROGEN BLOOD 13 mg/dL (9-23)
[2024-07-01 08:20] LABS: ALANINE AMINOTRANSFERASE 15 IU/L (10-49); ASPARTATE AMINOTRANSFERASE 21 IU/L (<34); BILIRUBIN DIRECT 0.1 mg/dL (<=3.0); BILIRUBIN TOTAL 0.5 mg/dL (0.1-1.0)
[2024-07-01] MEDS ORDERED: MAG355OR21 MT (08:41)
== END 2024-07-01 08:47 | disposition home or self-care (01) ==
LOC: ER 05:20
DX: R10.13 Epigastric pain (principal); E11.9 Type 2 diabetes mellitus without complications; I10 Essential (primary) hypertension; Z79.899 Other long term (current) drug therapy; Z79.82 Long term (current) use of aspirin
CPT/HCPCS: 36415; 80048; 80076; 85025; 99284